=== PATIENT | female | born 1960 | race Caucasian/White ===

== ENCOUNTER 2016-07-11 09:47 | Emergency (ER) | payer MEDICARE, MEDICAID ==
[~2016-07-11] VITALS: Ht 142.2 cm; Wt 52.2 kg
[~2016-07-11 09:47] MED LIST: DEPAKOTE ER500 MG ORAL; DEPAKOTE250 MG PO; DEPAKOTE500 MG PO; LAMICTAL25 MG ORAL; METOPROLOL TART50 MG ORAL; ZYPREXA2.5 MG ORAL
[2016-07-11 10:39] LABS: BASOPHILS % (AUTO) 0.9 % (0.0-2.0); EOSINOPHILS % (AUTO) 0.9 % (0.0-3.0); LYMPHOCYTES % (AUTO) 24.7 % (20.0-45.0); MEAN CORPUSCULAR HEMOGLOBIN 32.1 PG (27.0-31.0); MEAN CORPUSCULAR HGB CONC 33.6 G/DL (32.0-36.0); MEAN CORPUSCULAR VOLUME 96 FL (80-99); MEAN PLATELET VOLUME 7.6 FL (6.5-10.1); NEUTROPHILS % (AUTO) 62.6 % (45.0-75.0); PLATELET COUNT 137 K/UL (150-450); RED BLOOD COUNT 3.77 M/UL (4.20-5.40); WHITE BLOOD COUNT 7.3 K/UL (4.8-10.8)
[2016-07-11 10:50] LABS: ALANINE AMINOTRANSFERASE 10 U/L (3-33); ALBUMIN/GLOBULIN RATIO 1.3 (1.0-2.7); ANION GAP 11 (5-15); ASPARTATE AMINO TRANSFERASE 22 U/L (5-40); CALCIUM 9.5 mg/dL (8.6-10.2); CARBON DIOXIDE 27 mEQ/L (20-30); CHLORIDE 102 mEQ/L (98-107); CREATININE 0.8 mg/dL (0.5-0.9); GLOMERULAR FILTRATION RATE > 60 mL/min (>60); HEMOLYSIS 21; POTASSIUM 5.5 mEQ/L (3.4-4.9); SODIUM 140 mEQ/L (135-145); TOTAL PROTEIN 7.2 g/dL (6.6-8.7)
[2016-07-11] MEDS ORDERED: Albuterol ud Inhalation HHN ONE (11:15)
--- NOTE | 2016-07-11 11:16 | Emergency Room Report ---
History of Present Illness General Chief Complaint: Upper Extremity Injury Source: Patient, Caregiver Present Illness HPI 55 YO F with known developmental disability since brought in by caregiver with 1-2 days of fluctuating and intermittently resolving right hand swelling. No associated redness. Swelling does not extend past wrist. No fever/chills. History of DM. No trauma known. No new medications. Patient is aphasic d/t disability, not speaking. Allergies: Coded Allergies: ERYTHROMYCIN BASE (Verified Allergy, Mild, Rash, 12/19/13) Patient History Limited by: medical condition Past Surgical History: none Pertinent Family History: none Social History: Denies: alcohol use, drug use, smoking Last Menstrual Period: na Now: No Immunizations: UTD Reviewed Nursing Documentation: PMH: Agreed, PSxH: Agreed Nursing Documentation-PMH Past Medical History: No History, Except For Hx Seizures: Yes Review of Systems All Other Systems: limited - patient aphasic at baseline Physical Exam Vital Signs Date Time Temp Pulse Resp B/P Pulse Ox O2 Delivery O2 Flow Rate FiO2 07/11/16 09:56 97.9 78 18 148/64 98 Room Air Sp02 EP Interpretation: reviewed, normal General Appearance: normal inspection, well appearing, no apparent distress, alert, other - patient only grunting, grimacing, making intermittent sounds Head: normocephalic, atraumatic ENT: normal ENT inspection, hearing grossly normal, normal voice Neck: normal inspection, full range of motion, supple, no bony tend Respiratory: normal inspection, lungs clear, normal breath sounds, no respiratory distress, no retraction, no wheezing Cardiovascular #1: regular rate, rhythm, no edema Gastrointestinal: normal inspection, normal bowel sounds, non tender, soft, no guarding, no hernia Genitourinary: no CVA tenderness Musculoskeletal: other - Right hand: non-pitting edema, mild swelling of hand. No obvious trauma/deformity. No erythema. Non-tender to palpation. No wheel /flare. No other abnormality of hand/upper right extremity Neurologic: normal inspection, alert, responsive, speech normal Psychiatric: normal inspection, judgement/insight normal, mood/affect normal Skin: normal inspection, normal color, no rash Lymphatic: normal inspection Medical Decision Making Diagnostic Impression: Primary Impression: Swelling of right hand ER Course 55 YO F with right hand swelling. VSS. Afebrile. DDx includes trauma/fx, infection, upper extremity DVT Unlikely infection given intermittent resolution Unreliable HPI given patient is developmentally delayed so will do xray to r/o occult fx Will do labs, Upper extremity doppler, d-dimer Other X-Ray Diagnostic Results Other X-Ray Diagnostic Results : X-Ray Ordered: Right hand EP Interpretation: Yes Findings: no fractures, no dislocation, no soft tissue swelling Number of Views: 3 Reevaluation Time: 12:14 Last Vital Signs Date Time Temp Pulse Resp B/P Pulse Ox O2 Delivery O2 Flow Rate FiO2 07/11/16 09:56 97.9 78 18 148/64 98 Room Air Status: improved Reevaluation Impression Labs: No leuks. H&H stable. D-dimer WNL. Mild HyperK ECG: No ECG changes or TW elevation Sono upper extremity negative for DVT Xray hand negative for acute injury Caregiver endorses swelling is continuing to decrease I do not see any emergency cause of patient's intermittent right hand swelling, or need for additional testing and/or hospitalization Caregiver states patient with followup with Dr Deondre PENA home Disposition: HOME, SELF-CARE Referrals: ALIYA HUDSON M.D. (PCP) MIGUEL ANGEL LAWRENCE M.D. Jul 11, 2016 11:16
[2016-07-11 12:11] VITALS: BP 124/82
[2016-07-11 12:31] VITALS: BP 120/70
--- NOTE | 2016-07-11 13:30 | Diagnostic Imaging Report ---
Indication: pain Findings: 3 views of the right hand were obtained. Normal bony mineralization and alignment are demonstrated. No acute fractures, erosions, or periosteal reaction are seen. Soft tissues are unremarkable. Impression: Negative examination of the right hand.
--- NOTE | 2016-07-14 12:49 | Cardiology Report ---
APPROVED REPORT EKG Measurement Heart [id number] MA 110P31 [id number] Sinus rhythm with short MA Cannot rule out Anterior infarct, age undetermined Abnormal ECG
--- NOTE | 2016-07-15 14:20 | Diagnostic Imaging Report ---
APPROVED REPORT CPT Code: 93524 Present Symptoms Comments: Right arm swelling RIGHT UPPER EXTREMITY: Venous imaging reveals patency of the internal jugular, subclavian, axillary and brachial veins. The basilic veins is also patent. Doppler indicates normal spontaneous flow within these venous segments. The cephalic vein was not well visualized. There is no evidence of acute deep vein thrombosis.
== END 2016-07-11 12:31 | disposition home or self-care (01) ==
LOC: EMR 10:31
DX: M79.89 Other specified soft tissue disorders (principal); F80.2 Mixed receptive-expressive language disorder; Z88.1 Allergy status to other antibiotic agents; E11.9 Type 2 diabetes mellitus without complications
CPT/HCPCS: 36415; 80053; 85025; 85379; 93005; 93971; 94640; 94664; 99283

== ENCOUNTER 2017-04-15 09:07 | Outpatient (CLI) | payer MEDICARE, MEDICAID ==
[2017-04-15 10:24] LABS: BASOPHILS % (AUTO) 1.1 % (0.0-2.0); EOSINOPHILS % (AUTO) 3.4 % (0.0-3.0); LYMPHOCYTES % (AUTO) 34.3 % (20.0-45.0); MEAN CORPUSCULAR HEMOGLOBIN 33.2 PG (27.0-31.0); MEAN CORPUSCULAR VOLUME 98 FL (80-99); MEAN PLATELET VOLUME 4.9 FL (6.5-10.1); MONOCYTES % (AUTO) 12.6 % (1.0-10.0); NEUTROPHILS % (AUTO) 48.6 % (45.0-75.0); PLATELET COUNT 172 K/UL (150-450); RED BLOOD COUNT 3.98 M/UL (4.20-5.40); RED CELL DISTRIBUTION WIDTH 12.1 % (11.6-14.8); WHITE BLOOD COUNT 7.1 K/UL (4.8-10.8)
[2017-04-15 11:34] LABS: ALANINE AMINOTRANSFERASE 16 U/L (12-78); ALBUMIN/GLOBULIN RATIO 0.7 (1.0-2.7); ANION GAP 6 mmol/L (5-15); ASPARTATE AMINO TRANSFERASE 22 U/L (15-37); CALCIUM 9.8 MG/DL (8.5-10.1); CARBON DIOXIDE 28 MMOL/L (21-32); CHLORIDE 106 MMOL/L (98-107); CREATININE 0.7 MG/DL (0.55-1.30); FREE T3 2.4 pg/mL (2.3-4.2); GLOMERULAR FILTRATION RATE > 60 mL/min (>60); POTASSIUM 4.7 MMOL/L (3.5-5.1); SODIUM 140 MMOL/L (136-145); THYROID STIMULATING HORMONE 1.973 uiU/mL (0.360-3.740); TOTAL PROTEIN 7.8 G/DL (6.4-8.2)
[2017-04-17 10:06] LABS: T3 TOTAL 110 ng/dL (71-180)
[2017-04-20 13:00] LABS: VITAMIN D 25-OH TOTAL 23 ng/mL (.)
== END 2017-04-15 11:07 | disposition home or self-care (01) ==
LOC: LAB 09:07
DX: G40.909 Epilepsy, unspecified, not intractable, without status epilepticus (principal)
CPT/HCPCS: 36415; 80053; 80164; 80175; 82306; 82607; 84439; 84443; 84481; 85025

== ENCOUNTER 2017-09-22 14:39 | Outpatient (CLI) | payer MEDICARE, MEDICAID ==
[2017-09-22 15:16] LABS: BASOPHILS % (AUTO) 0.9 % (0.0-2.0); EOSINOPHILS % (AUTO) 1.1 % (0.0-3.0); HEMATOCRIT 35.9 % (37.0-47.0); HEMOGLOBIN 12.6 G/DL (12.0-16.0); MEAN CORPUSCULAR VOLUME 95 FL (80-99); MONOCYTES % (AUTO) 10.1 % (1.0-10.0); NEUTROPHILS % (AUTO) 33.9 % (45.0-75.0); PLATELET COUNT 163 K/UL (150-450); RED BLOOD COUNT 3.76 M/UL (4.20-5.40); RED CELL DISTRIBUTION WIDTH 12.2 % (11.6-14.8); WHITE BLOOD COUNT 6.1 K/UL (4.8-10.8)
[2017-09-22 15:36] LABS: ALANINE AMINOTRANSFERASE 18 U/L (12-78); ALBUMIN 3.3 G/DL (3.4-5.0); ALBUMIN/GLOBULIN RATIO 0.8 (1.0-2.7); ALKALINE PHOSPHATASE 55 U/L (46-116); ANION GAP 8 mmol/L (5-15); ASPARTATE AMINO TRANSFERASE 20 U/L (15-37); BILIRUBIN,TOTAL 0.5 MG/DL (0.2-1.0); BLOOD UREA NITROGEN 9 mg/dL (7-18); CALCIUM 8.9 MG/DL (8.5-10.1); CARBON DIOXIDE 26 MMOL/L (21-32); CHLORIDE 107 MMOL/L (98-107); CREATININE 0.7 MG/DL (0.55-1.30); POTASSIUM 4.4 MMOL/L (3.5-5.1); SODIUM 141 MMOL/L (136-145)
== END 2017-09-22 16:39 | disposition home or self-care (01) ==
LOC: LAB 14:39
DX: G40.909 Epilepsy, unspecified, not intractable, without status epilepticus (principal)
CPT/HCPCS: 36415; 80053; 80164; 85025

== ENCOUNTER 2018-03-18 07:05 | Outpatient (CLI) | payer MEDICARE, MEDICAID ==
[2018-03-18 07:44] LABS: BASOPHILS % (AUTO) 0.8 % (0.0-2.0); EOSINOPHILS % (AUTO) 4.7 % (0.0-3.0); HEMATOCRIT 38.3 % (37.0-47.0); HEMOGLOBIN 12.5 G/DL (12.0-16.0); LYMPHOCYTES % (AUTO) 40.8 % (20.0-45.0); MEAN CORPUSCULAR VOLUME 95 FL (80-99); MONOCYTES % (AUTO) 10.8 % (1.0-10.0); NEUTROPHILS % (AUTO) 42.9 % (45.0-75.0); PLATELET COUNT 188 K/UL (150-450); RED BLOOD COUNT 4.02 M/UL (4.20-5.40); RED CELL DISTRIBUTION WIDTH 11.5 % (11.6-14.8); WHITE BLOOD COUNT 7.2 K/UL (4.8-10.8)
[2018-03-18 08:21] LABS: ALANINE AMINOTRANSFERASE 18 U/L (12-78); ALBUMIN 3.6 G/DL (3.4-5.0); ALBUMIN/GLOBULIN RATIO 0.8 (1.0-2.7); ALKALINE PHOSPHATASE 68 U/L (46-116); ANION GAP 8 mmol/L (5-15); ASPARTATE AMINO TRANSFERASE 14 U/L (15-37); BILIRUBIN,TOTAL 0.3 MG/DL (0.2-1.0); BLOOD UREA NITROGEN 11 mg/dL (7-18); CALCIUM 9.3 MG/DL (8.5-10.1); CARBON DIOXIDE 28 MMOL/L (21-32); CHLORIDE 106 MMOL/L (98-107); CREATININE 0.8 MG/DL (0.55-1.30); POTASSIUM 4.4 MMOL/L (3.5-5.1); SODIUM 142 MMOL/L (136-145)
== END 2018-03-18 09:05 | disposition home or self-care (01) ==
LOC: LAB 07:05
DX: R56.9 Unspecified convulsions (principal)
CPT/HCPCS: 36415; 80053; 80164; 80175; 82306; 82607; 84443; 85025

== ENCOUNTER 2018-08-25 06:23 | Outpatient (CLI) | payer MEDICARE, MEDICAID ==
[2018-08-25 08:00] LABS: BASOPHILS % (AUTO) 0.9 % (0.0-2.0); EOSINOPHILS % (AUTO) 2.4 % (0.0-3.0); HEMATOCRIT 35.7 % (37.0-47.0); HEMOGLOBIN 11.8 G/DL (12.0-16.0); LYMPHOCYTES % (AUTO) 27.2 % (20.0-45.0); MEAN CORPUSCULAR VOLUME 97 FL (80-99); MONOCYTES % (AUTO) 8.8 % (1.0-10.0); NEUTROPHILS % (AUTO) 60.6 % (45.0-75.0); PLATELET COUNT 169 K/UL (150-450); RED BLOOD COUNT 3.68 M/UL (4.20-5.40); RED CELL DISTRIBUTION WIDTH 11.7 % (11.6-14.8); WHITE BLOOD COUNT 10.3 K/UL (4.8-10.8)
[2018-08-25 08:17] LABS: ALANINE AMINOTRANSFERASE 12 U/L (12-78); ALBUMIN 3.4 G/DL (3.4-5.0); ALBUMIN/GLOBULIN RATIO 0.8 (1.0-2.7); ALKALINE PHOSPHATASE 78 U/L (46-116); ANION GAP 9 mmol/L (5-15); ASPARTATE AMINO TRANSFERASE 16 U/L (15-37); BILIRUBIN,TOTAL 0.3 MG/DL (0.2-1.0); BLOOD UREA NITROGEN 10 mg/dL (7-18); CALCIUM 9.4 MG/DL (8.5-10.1); CARBON DIOXIDE 28 MMOL/L (21-32); CHLORIDE 108 MMOL/L (98-107); CREATININE 0.9 MG/DL (0.55-1.30); SODIUM 145 MMOL/L (136-145)
== END 2018-08-25 08:23 | disposition home or self-care (01) ==
LOC: LAB 06:23
DX: G40.219 Localization-related (focal) (partial) symptomatic epilepsy and epileptic syndromes with complex partial seizures, intractable, without status epilepticus (principal)
CPT/HCPCS: 36415; 80053; 80164; 80175; 85025

== ENCOUNTER 2018-08-30 11:02 | Inpatient (IN) | payer MEDICARE, MEDICAID ==
[~2018-08-30] VITALS: Ht 157.5 cm; Wt 49.0 kg
--- NOTE | 2018-08-30 17:00 | NUR ---
NURSE NOTES: Patient arrived on unit via wheelchair. Patient is stable and transferred to bed without incident. assisted by Bruce from [facility]. Patient is nonverbal, patient is able to communicate by using facial expressions. Patient does not show facial grimacing or moaning. Patient was encouraged to use call light for assistance. All safety measures provided. Patient is in bed with call light within reach and seizure precautions provided. Will continue to monitor.
[2018-08-30] MEDS ORDERED: LORazepam Inj 2mg/ml 1ml IV PRN (17:30)
--- NOTE | 2018-08-30 18:00 | NUR ---
NURSE NOTES: Patient would not take medication as ordered. Dr. Swain aware. IV access established as ordered. Patient refused EKG. Left message for xray, awaiting response. Patient is in bed and appears frightened. All safety measures provided. Will continue to monitor.
[2018-08-30] MEDS: Depakote 500mg tab ORAL SCH (18:07)
[2018-08-30] MEDS: Metoprolol Tartrate 50mg tab ORAL SCH ×2 (18:07→23:00)
[2018-08-30] MEDS: OLANZapine 10mg tab ORAL SCH (18:08)
[2018-08-30] MEDS: D5 1/2NS w/KCL 10meq 1,000 ML IV SCH (19:29)
[2018-08-30 20:00] VITALS: BP 122/86
[2018-08-30] MEDS ORDERED: Haloperidol 5mg/ml Inj IM SCH (20:00)
[2018-08-30 20:26] LABS: BASOPHILS % (AUTO) 2.1 % (0.0-2.0); EOSINOPHILS % (AUTO) 0.9 % (0.0-3.0); HEMATOCRIT 33.5 % (37.0-47.0); HEMOGLOBIN 11.3 G/DL (12.0-16.0); LYMPHOCYTES % (AUTO) 22.2 % (20.0-45.0); MEAN CORPUSCULAR VOLUME 94 FL (80-99); MONOCYTES % (AUTO) 14.2 % (1.0-10.0); NEUTROPHILS % (AUTO) 60.6 % (45.0-75.0); PLATELET COUNT 129 K/UL (150-450); RED BLOOD COUNT 3.56 M/UL (4.20-5.40); RED CELL DISTRIBUTION WIDTH 11.9 % (11.6-14.8); WHITE BLOOD COUNT 7.3 K/UL (4.8-10.8)
--- NOTE | 2018-08-30 20:33 | NUR ---
NURSE NOTES: Received report from Anastasiia Rn. Patient in bed, awake, nonverbal, anxious. Refusing skin assessment.Temp 97.3. HR 127, BP 122/86 HR 20, refusing oxygen reading. Will reassess vital when patient is more relaxed. No respiriatory distress, no N/V. Labs drawn. Reoriented to room. Will continue to monitor. Bed low, call light within reach.
[2018-08-30 20:56] LABS: ALANINE AMINOTRANSFERASE 16 U/L (12-78); ALBUMIN 3.4 G/DL (3.4-5.0); ALBUMIN/GLOBULIN RATIO 0.8 (1.0-2.7); ALKALINE PHOSPHATASE 91 U/L (46-116); ANION GAP 10 mmol/L (5-15); ASPARTATE AMINO TRANSFERASE 20 U/L (15-37); BILIRUBIN,TOTAL 0.3 MG/DL (0.2-1.0); BLOOD UREA NITROGEN 17 mg/dL (7-18); CALCIUM 9.5 MG/DL (8.5-10.1); CARBON DIOXIDE 28 MMOL/L (21-32); CHLORIDE 105 MMOL/L (98-107); CREATININE 0.9 MG/DL (0.55-1.30); POTASSIUM 4.8 MMOL/L (3.5-5.1); SODIUM 143 MMOL/L (136-145)
[2018-08-30] MEDS: Heparin 5000 units/ml inj SUBQ SCH (21:00)
[2018-08-31] VITALS (7 sets, daily range): BP systolic 134–170; BP diastolic 50–95
[2018-08-31] MEDS: Depakote 500mg tab ORAL SCH ×5 (00:03→22:23)
--- NOTE | 2018-08-31 00:28 | NUR ---
NURSE NOTES: Patient's skin assessed. Skin intact. Patient is refusing anything oral, including medications. Also refusing Depakote. Valproic acid level 22. VSS. Left message with Dr. Swain. Awaiting response.
[2018-08-31] MEDS ORDERED: Haloperidol 5mg/ml Inj IM SCH (01:15)
[2018-08-31] MEDS ORDERED: Vitamin B-12 500mcg tab ORAL SCH (02:15)
--- NOTE | 2018-08-31 04:00 | Consultation ---
DATE OF CONSULTATION: 08/30/2018 CARDIOLOGY CONSULTATION CONSULTING PHYSICIAN: Sea Busch M.D. REQUESTING PHYSICIAN: Uriah Swain M.D. REASON FOR CONSULTATION: Tachycardia. HISTORY OF PRESENT ILLNESS: This is a developmentally disabled female, age 57, was seen by Dr. Swain and noted to have recurring vomiting and a rapid heart rate. She has not been able to eat for a day or 2. She has been weak and withdrawn. She takes psychiatric regimen of multiple drugs and has not been able to tolerate some of her medications during this period of vomiting. PAST MEDICAL HISTORY: 1. Schizophrenia. 2. Vitamin D deficiency. 3. B12 deficiency. MEDICATIONS: Reviewed and reconciled. ALLERGIES: Erythromycin. SOCIAL HISTORY: Negative for smoking, alcohol, or substance abuse. She lives in an assisted living facility. FAMILY HISTORY: Unknown. REVIEW OF SYSTEMS: Not obtainable from the patient. PHYSICAL EXAMINATION: GENERAL: Thin, frail, withdrawn, and in mild distress. VITAL SIGNS: Blood pressure 158/97, pulse 116, and respirations 18. Afebrile. BREASTS: No breast masses. Cachectic chest wall. NECK: Supple. Oropharynx clear. LUNGS: Clear. CARDIAC: Regular rhythm. Rapid rate. Normal S1, S2. No murmur. ABDOMEN: Soft and flat. No focal tenderness, guarding, or rebound. EXTREMITIES: No edema. LABORATORY DATA: White count 7.3 and hemoglobin 11.3. Troponin negative. Pro-natriuretic peptide 167. TSH 8.3. BUN 17 and creatinine 0.9. Potassium 4.8. Normal amylase 129. IMPRESSION: 1. Nausea and vomiting, etiology unclear. 2. Sinus tachycardia. 3. Elevated natriuretic peptide of no clinical significance. 4. Hypothyroidism. 5. Mild hypovolemia and dehydration. 6. Macrocytic anemia. 7. History of vitamin D deficiency. 8. History of vitamin B12 deficiency. 9. 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 PLAN: 1. Hydration. 2. Abdominal ultrasound. 3. Thyroid replacement. 4. Intravenous fluid hydration. 5. No additional cardiovascular studies presently indicated. Sea Busch M.D. DR: SAMIA JOB#: [id number] CC:
--- NOTE | 2018-08-31 07:33 | NUR ---
NURSE NOTES: WALKING ROUNDS DONE WITH OUTGOING RN. PATIENT AWAKE IN BED; NON-VERBAL WILL PROVIDE EYE CONTACT. AO X1. SIDERAILS PADDED. BED IN LOW AND LOCKED POSITION. CALL LIGHT WITHIN REACH. DISCUSSES WITH PATIENT PLAN OF CARE FOR THE DAY.UNABLE TO COMPREHEND.
--- NOTE | 2018-08-31 08:37 | NUR ---
HAND-OFF: Report given to DEMI PRITCHETT. PATIENT STABLE.
--- NOTE | 2018-08-31 08:58 | NUR ---
RADIOLOGY DEPT., ABDOMEN X-RAY DONE.-P.DYE
[2018-08-31] MEDS: Vitamin D 1000 IU Tab ORAL SCH (09:00)
[2018-08-31] MEDS: OLANZapine 10mg tab ORAL SCH ×2 (09:00→18:00)
--- NOTE | 2018-08-31 09:50 | NUR ---
NURSE NOTES: ATTEMPTED TO FEED AND GIVE AM MEDS BUT PATIENT REFUSED TO OPEN HER MOUTH AND SLAP THE FOOD AWAY. CURRENTLY RECEIVING IVFS. WILL RE-ATTEMPT MED ADMINISTRATION.
--- NOTE | 2018-08-31 10:06 | NUR ---
CASE MANAGEMENT:REVIEW DIRECT ADMIT FROM [facility] SI: NAUSEA AND VOMITING. TACHYCARDIA 97.3 125 20 122/86 98% ON RA GLUCOSE+161 is: IVF@75/HR SYNTHROID PO QD HEPARIN SQ Q12 LAMICTAL PO BID LOPRESSOR PO Q12 ZYPREXA PO BID DEPAKOTE PO Q12 : DIRECTLY ADMITTED TO MED/SURG INTERQUAL CRITERIA MET
[2018-08-31] MEDS: Metoprolol Tartrate 50mg tab ORAL SCH ×2 (10:37→21:25)
[2018-08-31] MEDS: D5 1/2NS w/KCL 10meq 1,000 ML IV SCH ×2 (10:37→21:31)
--- NOTE | 2018-08-31 10:55 | NUR ---
CHARGE NURSE NOTE: Valproic acid 22. notified.
[2018-08-31] MEDS: Heparin 5000 units/ml inj SUBQ SCH ×2 (12:03→21:27)
--- NOTE | 2018-08-31 12:48 | Diagnostic Imaging Report ---
Indication: Abdominal pain Comparison: None Single view of the abdomen obtained Findings: Bowel gas pattern is nonspecific. No mass, ectopic calcifications, or abnormal gas collections are identified. The bones are unremarkable. Impression: No acute findings
--- NOTE | 2018-08-31 15:34 | Cardiology Report ---
APPROVED REPORT EKG Measurement Heart [id number] VA 142P54 [id number] Sinus tachycardia Otherwise normal ECG
--- NOTE | 2018-08-31 16:30 | History and Physical Report ---
DATE OF ADMISSION: 08/30/2018 CHIEF COMPLAINT: Intractable nausea and vomiting, and dehydration. HISTORY OF PRESENT ILLNESS: The patient is a 57-year-old female. She has a history of intellectual developmental delay, seizure disorder, hypothyroidism, and hypertension, who presented with complaints of intractable nausea and vomiting. The patient was seen on the day of admission. While in the office, she had multiple episodes of emesis. According to the patient's charge operator, she has had emesis multiple times for the last several days. There were no reports of any constipation. No ill contacts. No fevers or chills. In light of the patient's persistent nausea and vomiting, she is now admitted for further evaluation and care. The patient is unable to provide any history. PAST MEDICAL HISTORY: As above. PAST SURGICAL HISTORY: None. CURRENT MEDICATIONS: Reconciled and reviewed. ALLERGIES: Includes erythromycin. FAMILY HISTORY: Noncontributory. SOCIAL HISTORY: There is no known history of tobacco, ethanol, or drugs. REVIEW OF SYSTEMS: Unobtainable as the patient is confused. PHYSICAL EXAMINATION: VITAL SIGNS: Temperature 97.3, pulse 125, respirations 20, and blood pressure 122/86. GENERAL: The patient is a well-developed, but chronically ill-appearing female. She is somewhat pale and does not follow commands. NECK: Supple. HEART: Tachycardic. LUNGS: Clear. ABDOMEN: Soft, nontender, and nondistended with normoactive bowel sounds. EXTREMITIES: Without clubbing, cyanosis, or edema. LABORATORY DATA: Sodium 143, potassium 4.8. A1c 6.1. LFTs were unremarkable. Troponin is 0.001. Natriuretic peptide level was 167. TSH was 8.3. White count 7, hemoglobin 11. Valproic acid level is 22. ASSESSMENT: This is a 57-year-old female with a history of intellectual developmental delay, hypertension, and hypothyroidism, admitted with complaints of intractable nausea and vomiting. Unclear etiology, suspect gastroenteritis, but need to rule out obstruction. PLAN: 1. Followup KUB. 2. Cardiology consultation regarding the patient's tachycardia. 3. We will have to titrate the patient's thyroid replacement therapy. Otherwise, continue the patient's psychiatric medications and seizure medications. Uriah Swain M.D. DR: RAMYA JOB#: [id number] CC:
--- NOTE | 2018-08-31 18:23 | NUR ---
NURSE NOTE ATTEMPTED TO GIVE PM MEDS. PATIENT FIGHTING AND UNABLE TO GIVE. MD NOTIFIED.
--- NOTE | 2018-08-31 18:30 | NUR ---
NURSE NOTES:ADDENDUM MD INFORMED OF UNSUCCESSFUL STRAIGHT CATH ATTEMPTED FOR 15 MINS. PATIENT UNABLE TO TOLERATE AND WAS NOT COOPERATIVE.
--- NOTE | 2018-08-31 19:24 | NUR ---
HAND-OFF: Report given to JAMESON Newby RN.
--- NOTE | 2018-08-31 19:25 | NUR ---
NURSE NOTES: Report taken from DEMI Trammell. Patient awake, A&Ox1, responds to name. Patient is non-verbal. MD aware that Plt count is at 129, continue to administer Heparin. IV site c/d/i and patent, site wrapped so patient does not pull IV. Order for straight cath in, Valeri attempted and could not place, I will try during shift to collect UA. Bed in lowest position, call light within reach.
[2018-08-31] MEDS ORDERED: Depakote 125mg Sprinkles ORAL SCH (21:00)
--- NOTE | 2018-08-31 21:00 | NUR ---
NURSE NOTES: Attempted to administer depakote, but patient was very agitated. She continually spit out the medication. Called MD for different formulation of medication, awaiting return phone call.
--- NOTE | 2018-09-01 00:45 | Progress Note ---
DATE: 08/31/2018 CARDIOLOGY PROGRESS NOTE SUBJECTIVE: The patient has less vomiting. She is tolerating a diet. She has been started on thyroid replacement. OBJECTIVE: VITAL SIGNS: Blood pressure 136/93, pulse 102, respirations 19. GENERAL: Thin and frail. LUNGS: Bilateral breath sounds. ABDOMEN: Soft. No focal tenderness. CARDIAC: Regular rhythm. Rapid rate. Normal S1, S2. EXTREMITIES: No edema. LABORATORY DATA: Reviewed. IMPRESSION: 1. Nausea and vomiting. 2. Hypothyroidism. 3. History of B12 and vitamin D deficiencies. 4. Developmental delay. 5. No clinical signs of acute congestive heart failure. 6. Secondary sinus tachycardia. PLAN: 1. Adequate hydration. 2. Fluid replacement. 3. Antiemetics. 4. Thyroid replacement. 5. DVT prophylaxis. 6. No role for diuretics or anti-failure regimen presently. Sea Busch M.D. DR: RITIKA JOB#: [id number] CC:
[2018-09-01 00:48] VITALS: BP 152/63
[2018-09-01 04:00] VITALS: BP 119/88
--- NOTE | 2018-09-01 05:44 | NUR ---
NURSE NOTES: Attempted to straight cath patient for UA collection unsuccessful. Will endorse to next shift.
[2018-09-01] MEDS: Levothyroxine 125mcg tab ORAL SCH (06:33)
--- NOTE | 2018-09-01 06:37 | NUR ---
NURSE NOTES: Only able to administer half the dose of levothyroxine. Patient was agitated and continued to spit out the rest of the medication.
--- NOTE | 2018-09-01 07:19 | NUR ---
HAND-OFF: Report given to DEMI Sung. Patient awake, VS stable.
--- NOTE | 2018-09-01 07:29 | NUR ---
NURSE NOTES: Report received from DEMI [place]. Pt in bed, awake, A/O x1, jerking movements, bed in lowest position, call light within reach.
[2018-09-01 08:00] VITALS: BP 152/87
--- NOTE | 2018-09-01 08:05 | General Progress Note ---
Assessment/Plan Problem List: (1) Vomiting ICD Codes: R11.10 - Vomiting, unspecified SNOMED: 657995928 (2) Seizure disorder ICD Codes: G40.909 - Epilepsy, unspecified, not intractable,without status epilepticus SNOMED: 991557918 (3) Dehydration ICD Codes: E86.0 - Dehydration SNOMED: 76505855 Status: stable Assessment/Plan cont current rx advance diet ivf antiemetics compliance stressed try to get UA dc planning tomorrow if no vomiting Subjective ROS Limited/Unobtainable: Yes Constitutional: Reports: malaise, weakness HEENT: Reports: no symptoms Cardiovascular: Reports: no symptoms Respiratory: Reports: no symptoms Gastrointestinal/Abdominal: Reports: vomiting Genitourinary: Reports: no symptoms Neurologic/Psychiatric: Reports: pre-existing deficit, seizure Endocrine: Reports: no symptoms Hematologic/Lymphatic: Reports: no symptoms Allergies: Coded Allergies: ERYTHROMYCIN BASE (Verified Allergy, Mild, Rash, 12/19/13) All Systems: reviewed and negative except above Subjective on clear. tolerating so far. KUB neg. small BM. uncooperative with care and meds at times. Objective Last 24 Hour Vital Signs Date Time Temp Pulse Resp B/P (MAP) Pulse Ox O2 Delivery O2 Flow Rate FiO2 09/01/18 04:00 98.0 80 16 119/88 (98) 95 09/01/18 00:48 97.6 73 18 152/63 (92) 96 08/31/18 21:25 96 170/80 08/31/18 21:00 Room Air 08/31/18 20:00 97.9 96 18 170/80 (110) 96 08/31/18 15:49 97.1 98 18 140/86 (104) 98 08/31/18 12:00 98.6 102 19 136/93 (107) 96 08/31/18 10:37 109 148/95 08/31/18 09:00 Room Air Intake and Output 08/31/18 09/01/18 18:59 06:59 Intake Total 787.5 ml 315 ml Balance 787.5 ml 315 ml Intake Oral 240 ml IV Total 787.5 ml 75 ml # Voids 3 2 # Bowel Movements 3 Height (Feet): 5 Height (Inches): 2.00 Weight (Pounds): 108 General Appearance: WD/WN, confused, agitated Neck: supple Cardiovascular: regular rhythm Respiratory/Chest: chest wall non-tender, lungs clear, normal breath sounds Abdomen: normal bowel sounds, non tender, soft Edema: no edema noted Arm (L), no edema noted Arm (R), no edema noted Leg (L), no edema noted Leg (R), no edema noted Pedal (L), no edema noted Pedal (R), no edema noted Generalized Uriah Swain MD Sep 01, 2018 08:05
[2018-09-01] MEDS: Vitamin D 1000 IU Tab ORAL SCH (09:20)
[2018-09-01] MEDS: OLANZapine 10mg tab ORAL SCH ×2 (09:20→17:25)
[2018-09-01] MEDS: Depakote 125mg Sprinkles ORAL SCH ×2 (09:20→22:09)
[2018-09-01] MEDS: Metoprolol Tartrate 50mg tab ORAL SCH ×2 (09:21→21:00)
[2018-09-01] MEDS: Heparin 5000 units/ml inj SUBQ SCH ×2 (09:22→22:08)
--- NOTE | 2018-09-01 09:54 | NUR ---
CASE MANAGEMENT:REVIEW 09/01/18 SI: VOMITING. DEHYDRATION 97.4 87 16 152/87 97% ON RA IS: DEPAKOTE PO Q12 SYNTHROID PO QAM HEPARIN SQ Q12 IVF@75/HR LOPRESSOR PO Q12 : MED/SURG STATUS DCP: FROM [facility] PLAN: BEGIN SOFT DIET POSSIBLE DC TOMORROW IF NO EMESIS
[2018-09-01] MEDS: D5 1/2NS w/KCL 10meq 1,000 ML IV SCH ×2 (10:48→23:47)
[2018-09-01 12:00] VITALS: BP 122/87
[2018-09-01 14:17] LABS: APPEARANCE,URINE CLEAR; BILIRUBIN, URINE NEGATIVE (NEGATIVE); COLOR,URINE PALE YELLOW; GLUCOSE, URINE (UA) NEGATIVE (NEGATIVE); KETONES,URINE NEGATIVE (NEGATIVE); LEUKOCYTE ESTERASE ,URINE 1+ (NEGATIVE); NITRITE,URINE NEGATIVE (NEGATIVE); PH,URINE 6 (4.5-8.0); PROTEIN,URINE NEGATIVE (NEGATIVE); UROBILINOGEN,URINE NORMAL MG/DL (0.0-1.0)
[2018-09-01 16:00] VITALS: BP 124/66
--- NOTE | 2018-09-01 19:30 | NUR ---
NURSE NOTES: Received report from DEMI Sung. Received pt asleep, easily arousable by tactile stimuli, awake, alert x 1, confused, restless in bed. IV R FA # 22 patent and intact. IV fluid infusing as ordered. Bed in lowest position, side rails x 3, call light within reach. Will continue to monitor.
--- NOTE | 2018-09-01 19:41 | NUR ---
HAND-OFF: Report given to DEMI Qiu.
[2018-09-01 20:00] VITALS: BP 101/53
[2018-09-02] VITALS: BP 110/61
[2018-09-02 04:00] VITALS: BP 113/55
--- NOTE | 2018-09-02 04:45 | Progress Note ---
DATE: 09/01/2018 CARDIOLOGY PROGRESS NOTE SUBJECTIVE: Vomiting has decreased. The patient is difficult and uncooperative with medications and care at times due to her psychiatric condition. OBJECTIVE: VITAL SIGNS: Blood pressure 119/88 to 170/80, heart rate 80 to 102, respiratory rate 16 to 18, and afebrile. NECK: Supple. LUNGS: Clear. ABDOMEN: Soft, nontender, and benign. KUB is negative. EXTREMITIES: Without edema. LABORATORY DATA: Urinalysis with no active sediment. IMPRESSION: 1. Nausea and vomiting. 2. Developmentally disabled. 3. Borderline diabetes mellitus. 4. No clinical signs of acute congestive heart failure. 5. Hypothyroidism. 6. B12 and vitamin D deficiency. 7. Elevated natriuretic peptide assay of no clinical significance. PLAN: 1. ADA diet. 2. No additional cardiovascular workup at this time. 3. Thyroid replacement. Sea Busch M.D. DR: SAMIA JOB#: [id number] CC:
[2018-09-02] MEDS: Levothyroxine 125mcg tab ORAL SCH (05:50)
--- NOTE | 2018-09-02 07:00 | NUR ---
HAND-OFF: Report given to DEMI Sung. Pt in stable condition .
--- NOTE | 2018-09-02 07:05 | NUR ---
NURSE NOTES: Report received from DEMI Qiu. Pt in bed, asleep, respirations unlabored, bed in lowest position, call light within reach.
[2018-09-02] MEDS ORDERED: LEVOTHYROXINE125 MCG ORAL (07:56)
[2018-09-02 08:00] VITALS: BP 125/71
[2018-09-02 08:46] VITALS: BP 125/71
[2018-09-02] MEDS: Vitamin D 1000 IU Tab ORAL SCH (08:46)
[2018-09-02] MEDS: Depakote 125mg Sprinkles ORAL SCH (08:46)
[2018-09-02] MEDS: Metoprolol Tartrate 50mg tab ORAL SCH (08:46)
[2018-09-02] MEDS: OLANZapine 10mg tab ORAL SCH (08:46)
[2018-09-02] MEDS: Heparin 5000 units/ml inj SUBQ SCH (08:47)
--- NOTE | 2018-09-02 11:57 | NUR ---
NURSE NOTES: Pt discharged back to [facility] with all belongings, via ambulance, IV and ID band removed, pt stable for discharge.
--- NOTE | 2018-09-03 04:36 | Discharge Summary ---
DATE OF ADMISSION: 08/30/2018 DATE OF DISCHARGE: 09/02/2018 ADMISSION DIAGNOSES: 1. Intractable nausea and vomiting, rule out bowel obstruction. 2. Dehydration. 3. Encephalopathy. 4. Seizure disorder. 5. Hypothyroidism. DISCHARGE DIAGNOSES: 1. Intractable nausea and vomiting, rule out bowel obstruction. 2. Dehydration. 3. Encephalopathy. 4. Seizure disorder. 5. Hypothyroidism. HOSPITAL COURSE: The patient was admitted with complaints of intractable nausea and vomiting. She had a KUB that showed no evidence of any obstruction. She had multiple episodes of vomiting. She received IV fluids and antiemetic. She did improve. On discharge, she was tolerating p.o.'s with no further episodes of vomiting. She was felt to likely have gastroenteritis. She was also noted to be hypothyroid and started on thyroid replacement therapy. She will be followed up in 6 weeks in the office. DISCHARGE MEDICATIONS: Please see discharge medication list for discharge medications. DIET: Regular diet. ACTIVITIES: Ad-ayde. Uriah Swain M.D. DR: JOSE JOB#: [id number] CC:
--- NOTE | 2018-09-05 03:30 | Progress Note ---
DATE: 09/02/2018 CARDIOLOGY PROGRESS NOTE Late entry for 09/02/2018. SUBJECTIVE: The patient has no more nausea and vomiting. Tolerating diet. Vitals are stable. Height rate has retained to baseline. OBJECTIVE: VITAL SIGNS: Blood pressure 113/55, pulse 60, and respirations 20. Afebrile. LUNGS: Clear. CARDIAC: Regular. Normal S1, S2. ABDOMEN: Soft. EXTREMITIES: No edema. IMPRESSION: 1. Nausea and vomiting with dehydration and hypovolemia, now resolved. 2. Secondary sinus tachycardia, recovered. 3. Elevated natriuretic peptide assay of no clinical significance. 4. Hypothyroidism, now on replacement therapy. 5. B12 and vitamin D deficiencies, on replacement. PLAN: No additional cardiovascular workup or therapy is presently indicated. Sea Busch M.D. DR: SAMIA JOB#: [id number] CC:
== END 2018-09-02 13:00 | disposition home or self-care (01) | DRG 389 ==
LOC: 3E 16:53
DX: K56.609 Unspecified intestinal obstruction, unspecified as to partial versus complete obstruction (principal); G93.40 Encephalopathy, unspecified; R62.50 Unspecified lack of expected normal physiological development in childhood; E03.9 Hypothyroidism, unspecified; R00.0 Tachycardia, unspecified; F20.9 Schizophrenia, unspecified; G24.01 Drug induced subacute dyskinesia; D53.9 Nutritional anemia, unspecified; E86.0 Dehydration; E55.9 Vitamin D deficiency, unspecified; G40.909 Epilepsy, unspecified, not intractable, without status epilepticus; I10 Essential (primary) hypertension; F81.9 Developmental disorder of scholastic skills, unspecified; T43.505A Adverse effect of unspecified antipsychotics and neuroleptics, initial encounter; Y92.9 Unspecified place or not applicable
CPT/HCPCS: 36415; 74018; 80053; 80164; 81003; 83036; 83690; 83880; 84443; 84484; 85025; 87086; 93005

== ENCOUNTER 2019-01-14 08:30 | Outpatient (CLI) | payer MEDICARE, MEDICAID ==
[~2019-01-14 08:30] MED LIST changes: +LEVOTHYROXINE125 MCG ORAL
[2019-01-14 08:55] LABS: BASOPHILS % (AUTO) 0.9 % (0.0-2.0); EOSINOPHILS % (AUTO) 1.4 % (0.0-3.0); HEMATOCRIT 38.9 % (37.0-47.0); HEMOGLOBIN 12.8 G/DL (12.0-16.0); LYMPHOCYTES % (AUTO) 30.6 % (20.0-45.0); MEAN CORPUSCULAR VOLUME 95 FL (80-99); MONOCYTES % (AUTO) 10.6 % (1.0-10.0); NEUTROPHILS % (AUTO) 56.6 % (45.0-75.0); PLATELET COUNT 232 K/UL (150-450); RED BLOOD COUNT 4.11 M/UL (4.20-5.40); RED CELL DISTRIBUTION WIDTH 12.1 % (11.6-14.8); WHITE BLOOD COUNT 7.5 K/UL (4.8-10.8)
[2019-01-14 09:31] LABS: ALANINE AMINOTRANSFERASE 12 U/L (12-78); ALBUMIN 3.5 G/DL (3.4-5.0); ALBUMIN/GLOBULIN RATIO 0.8 (1.0-2.7); ALKALINE PHOSPHATASE 72 U/L (46-116); ANION GAP 3 mmol/L (5-15); ASPARTATE AMINO TRANSFERASE 13 U/L (15-37); BILIRUBIN,TOTAL 0.4 MG/DL (0.2-1.0); BLOOD UREA NITROGEN 18 mg/dL (7-18); CALCIUM 10.1 MG/DL (8.5-10.1); CARBON DIOXIDE 31 MMOL/L (21-32); CHLORIDE 108 MMOL/L (98-107); CREATININE 0.9 MG/DL (0.55-1.30); POTASSIUM 5.7 MMOL/L (3.5-5.1); SODIUM 142 MMOL/L (136-145)
== END 2019-01-14 10:30 | disposition home or self-care (01) ==
LOC: LAB 08:30
DX: G40.909 Epilepsy, unspecified, not intractable, without status epilepticus (principal)
CPT/HCPCS: 36415; 80053; 80164; 80175; 85025

== ENCOUNTER 2019-03-15 11:49 | Emergency (ER) | payer MEDICAID, MEDICARE ==
[~2019-03-15] VITALS: Ht 152.4 cm; Wt 49.9 kg
[2019-03-15 12:00] VITALS: BP 150/82
--- NOTE | 2019-03-15 12:00 | NUR ---
ED Nurse Note: pt brought by caregiver due to coughing and runny nose for 2-3 days. no fever or chills reported. pt is non-verbal. has mental disablilty. skin warm to touch. respirtions even and non-labored noted. breath sounds clear. will wait for the further order.
--- NOTE | 2019-03-15 12:58 | Emergency Room Report ---
History of Present Illness General Chief Complaint: Upper Respiratory Illness Source: Medical Record Present Illness HPI 58-year-old female with history of schizophrenia and bipolar disorder brought in by caregiver due to 4 days of cough and congestion. Patient is nonverbal and combative. Patient does not allow for proper physical exam. According to caregiver patient usually is prescribed azithromycin and cough syrup. Patient is asking for Phenergan however I advised the caregiver that due to patient taking Zyprexa Phenergan is not advised and to be prescribed by psychiatrist if advised by him. Patient is in no apparent distress, has a stable vital signs. Patient is not a good historian and the caregiver does not appear to be a good historian either. Allergies: Coded Allergies: ERYTHROMYCIN BASE (Verified Allergy, Mild, Rash, 12/19/13) Patient History Past Medical History: see triage record Past Surgical History: unable to obtain Pertinent Family History: none Now: No Immunizations: UTD Reviewed Nursing Documentation: PMH: Agreed; PSxH: Agreed Nursing Documentation-PMH Past Medical History: No History, Except For Hx Cardiac Problems: No Hx Cancer: No Hx Gastrointestinal Problems: No Hx Neurological Problems: No Hx Seizures: Yes Review of Systems All Other Systems: negative except mentioned in HPI Physical Exam Vital Signs Date Time Temp Pulse Resp B/P (MAP) Pulse Ox O2 Delivery O2 Flow Rate FiO2 03/15/19 12:00 97.9 97 18 150/82 (104) 100 Room Air Sp02 EP Interpretation: reviewed, normal General Appearance: well appearing, no apparent distress, alert Head: normocephalic Eyes: bilateral eye normal inspection, bilateral eye PERRL ENT: normal pharynx Neck: full range of motion, supple/symm/no masses Respiratory: chest non-tender, lungs clear, normal breath sounds, speaking full sentences Cardiovascular #1: normal inspection, no murmur Gastrointestinal: normal inspection Neurologic: alert, oriented x3 Psychiatric: depressed affect Skin: no rash Lymphatic: normal inspection Medical Decision Making PA Attestation All diagnoses and treatment plans were reviewed and discussed with my supervising physician Dr. Rankin Diagnostic Impression: Primary Impression: URI (upper respiratory infection) ER Course 58-year-old female with history of schizophrenia and bipolar disorder brought in by caregiver due to 4 days of cough and congestion. Patient is nonverbal and combative. Patient does not allow for a proper physical exam. According to caregiver patient usually is prescribed azithromycin and cough syrup. Patient is asking for Phenergan however I advised the caregiver that due to patient taking Zyprexa Phenergan is not advised and to be prescribed by psychiatrist if advised by him. Patient is in no apparent distress, has a stable vital signs. Patient is not a good historian and the caregiver does not appear to be a good historian either. Ddx considered but are not limited to: strep pharyngitis, URI, tonsillitis, peritonsillar abscess, influneza Vital signs: are WNL, pt. is afebrile H&PE are most consistent with: URI presumed bacterial as patient is not a good historian ORDERS: Azithromycin, guaifenesin ED INTERVENTIONS: None required at this time. DISCHARGE: At this time pt. is stable for d/c to home. Will provide printed patient care instructions, and any necessary prescriptions. Care plan and follow up instructions have been discussed with the patient prior to discharge. Patient to check with her questions before start of new medication follow-up with her primary care provider if worsening symptoms return to the emergency room Last Vital Signs Date Time Temp Pulse Resp B/P (MAP) Pulse Ox O2 Delivery O2 Flow Rate FiO2 03/15/19 12:00 97.9 97 18 150/82 (104) 100 Room Air Disposition: HOME, SELF-CARE Condition: Stable Scripts Guaifenesin* (GUAIFENESIN) 100 Mg/5 Ml Liquid 5 ML ORAL Q4H, #120 ML 0 Refills Prov: Ashwini Foreman 03/15/19 Azithromycin* (AZITHROMYCIN*) 200 Mg/5 Ml Susp.recon 13 ML ORAL DAILY for 5 Days, #40 ML 13ml po x1d then 6.5ml po daily x4d Prov: Ashwini Foreman 03/15/19 Referrals: NOT CHOSEN [facility]/,REFERRING (PCP) Patient Instructions: Upper Respiratory Infection, Adult Additional Instructions: Take medication as directed, follow-up with your primary care provider and your psychiatrist for Phenergan at this time we cannot write for the medication as you are taking Zyprexa. If worsening symptoms return to the emergency room. Ashwini Foreman Mar 15, 2019 12:58
[2019-03-15] MEDS ORDERED: AZITHROMYC200 MG/5 M ORAL (13:01)
[2019-03-15] MEDS ORDERED: GUAIFENESI100 MG/5 M ORAL (13:01)
--- NOTE | 2019-03-15 13:08 | NUR ---
ER DISCHARGE NOTE: Patient is cleared to be discharged per ERMD with caregiver, on room air, with stable vital signs. pt was given dc and prescription instructions, caregiver was able to verbalize understanding, pt id band removed without complications. pt is able to ambulate with steady gait. pt took all belongings.
[2019-03-15 13:10] VITALS: BP 150/82
== END 2019-03-15 13:11 | disposition home or self-care (01) ==
LOC: EMR 12:38
DX: J06.9 Acute upper respiratory infection, unspecified (principal); Z88.1 Allergy status to other antibiotic agents; F20.9 Schizophrenia, unspecified; F31.9 Bipolar disorder, unspecified
CPT/HCPCS: 99282

== ENCOUNTER 2019-07-26 10:00 | Emergency (ER) | payer MEDICARE, MEDICAID ==
[~2019-07-26] VITALS: Ht 157.5 cm; Wt 54.4 kg
[~2019-07-26 10:00] MED LIST changes: +AZITHROMYC200 MG/5 M ORAL; +GUAIFENESI100 MG/5 M ORAL
[2019-07-26 10:21] VITALS: BP 155/90
--- NOTE | 2019-07-26 10:21 | NUR ---
ED Nurse Note: PT Brought in by her caregiver for S/P fall. Per caregiver, PT fell off from her bed. no visible injury noted, but caregiver wants to make sure everthing is ok. PT is non verbal. No S/Sx of pain via FLACC scale.
--- NOTE | 2019-07-26 11:05 | NUR ---
ED Nurse Note: X ray being done at [facility].
--- NOTE | 2019-07-26 11:07 | Emergency Room Report ---
History of Present Illness General Chief Complaint: Multiple Trauma/Fall Source: Caregiver Present Illness HPI Patient is developmentally delayed and is brought in by print room worker who reports that the patient was found on the ground Patient has history of seizure activity and has had multiple seizures in the past However the patient was not witnessed to have seizure activity today The print room worker was concerned regarding the patient's fall and being found on the ground Patient appears to have some discomfort to the right upper leg And presents for further evaluation History of present illness is limited as the patient Herself is not able to provide history Allergies: Coded Allergies: ERYTHROMYCIN BASE (Verified Allergy, Mild, Rash, 12/19/13) Patient History Past Medical History: see triage record Reviewed Nursing Documentation: PMH: Agreed; PSxH: Agreed Nursing Documentation-PMH Past Medical History: No History, Except For Hx Cardiac Problems: No Hx Hypertension: No Hx Pacemaker: No Hx Asthma: No Hx COPD: No Hx Diabetes: No Hx Cancer: No Hx Gastrointestinal Problems: No Hx Dialysis: No History Of Psychiatric Problem: No Hx Neurological Problems: Yes Hx Cerebrovascular Accident: No Hx Seizures: Yes Review of Systems All Other Systems: limited - Other than the ones mentioned in the history of present illness all others are reviewed however they do stay limited due to the patient's mental status Physical Exam Vital Signs Date Time Temp Pulse Resp B/P (MAP) Pulse Ox O2 Delivery O2 Flow Rate FiO2 07/26/19 10:20 97.9 105 16 159/89 (112) 99 Room Air Sp02 EP Interpretation: reviewed, normal General Appearance: no apparent distress Head: other - Microcephalic head Eyes: bilateral eye PERRL ENT: normal pharynx Neck: supple Respiratory: lungs clear, no respiratory distress Cardiovascular #1: regular rate, rhythm Gastrointestinal: non tender, soft Musculoskeletal: other - Patient has significant arthritic changes right shoulder specifically showing this significant kyphosis, there is no obvious grimacing with palpation of the extremities Neurologic: alert, other - Eyes are open however patient not responsive verbally Skin: no rash - No obvious contusions or hematomas Lymphatic: no adenopathy Medical Decision Making Diagnostic Impression: Primary Impression: Contusion ER Course Given the history and presentation multiple imaging are obtained The exam and the evaluation is also very limited given the patient's mental status and ability to provide any input regarding discomfort Multiple imaging does not show any evidence of acute process Given the exam and the evaluation however subtle and potentially larger acute findings can be missed The print room worker is encouraged to pay close attention over the next several days and return to the ER if there is any new complaints or other areas of signs of discomfort Chest X-Ray Diagnostic Results Chest X-Ray Diagnostic Results : Chest X-Ray Ordered: Yes # of Views/Limited/Complete: 1 View Indication: Chest Pain EP Interpretation: Yes Interpretation: no consolidation, no effusion, no pneumothorax, no acute cardiopulmonary disease Impression: No acute disease Electronically Signed by: Juan Gibbons DO Other X-Ray Diagnostic Results Other X-Ray Diagnostic Results #1: X-Ray ordered: Left tib-fib # of Views/Limited Vs Complete: 2 View Indication: Pain EP Interpretation: Yes Interpretation: no dislocation, no soft tissue swelling, no fractures Impression: No acute disease Electronically Signed by: Juan Gibbons DO Other X-Ray Diagnostic Results #2: X-Ray ordered: Right tib-fib # of Views/Limited Vs Complete: 2 View Indication: Pain EP Interpretation: Yes Interpretation: no dislocation, no soft tissue swelling, no fractures Impression: No acute disease Electronically Signed by: Juan Gibbons DO Other X-Ray Diagnostic Results #3: X-Ray ordered: Right femur # of Views/Limited Vs Complete: 3 View Indication: Pain EP Interpretation: Yes Interpretation: no dislocation, no soft tissue swelling, no fractures Impression: No acute disease Electronically Signed by: Juan Gibbons DO Other X-Ray Diagnostic Results #4: X-Ray ordered: Left femur # of Views/Limited Vs Complete: 3 View Indication: Pain EP Interpretation: Yes Interpretation: no dislocation, no soft tissue swelling, no fractures Impression: No acute disease Electronically Signed by: Juan Gibbons DO Other X-Ray Diagnostic Results #5: X-Ray ordered: Pelvic # of Views/Limited Vs Complete: 1 View Indication: Pain EP Interpretation: Yes Interpretation: no dislocation, no soft tissue swelling, no fractures Impression: No acute disease Electronically Signed by: Juan Gibbons DO Last Vital Signs Date Time Temp Pulse Resp B/P (MAP) Pulse Ox O2 Delivery O2 Flow Rate FiO2 07/26/19 10:21 98 18 Room Air 07/26/19 10:21 97.9 155/90 99 Status: improved Disposition: HOME, SELF-CARE Condition: Improved Referrals: Uriah Swain MD (PCP) Additional Instructions: Patient is provided with the discharge instructions notified to follow up with primary doctor in the next 2-3 days otherwise return to the er with any worsening symptoms. Please note that this report is being documented using [employer] technology. This can lead to erroneous entry secondary to incorrect interpretation by the dictating instrument. Juan Gibbons DO Jul 26, 2019 11:07
[2019-07-26 12:23] VITALS: BP 150/88
--- NOTE | 2019-07-26 12:23 | NUR ---
ER DISCHARGE NOTE: Patient is cleared to be discharged per ERMD, pt is aox4, on room air, with stable vital signs. pt was given dc and prescription instructions, pt was able to verbalize understanding, pt id band removed without complications. pt is able to ambulate with steady gait. pt took all belongings.
--- NOTE | 2019-07-26 13:09 | Diagnostic Imaging Report ---
Indication: Chest pain, status post fall Technique: One view of the chest Comparison: 03/10/2011 Findings: Lungs and pleural spaces are clear. Heart size is normal. No pneumothorax. No significant change Impression: No acute process
--- NOTE | 2019-07-26 13:20 | Diagnostic Imaging Report ---
Indication: Pain, status post fall Technique: 2 views of the left tibia and fibula Comparison: none Findings: No acute fractures. No dislocations. Joint spaces are preserved Impression: Negative
--- NOTE | 2019-07-26 13:22 | Diagnostic Imaging Report ---
Indication: Trauma, pain Technique: 2 views of the right tibia and fibula Comparison: 03/06/2011 Findings: Interim surgical repair of previously demonstrated distal tibial shaft fracture. Interim healing of previously demonstrated fibular fracture. There is markedly unusual appearance to the anterior proximal tibia, which is a new finding from the prior exam. This appears chronic, however. Impression: No acute bony trauma. Findings as noted
--- NOTE | 2019-07-26 13:23 | Diagnostic Imaging Report ---
Indications: Pain, trauma Technique: Two views of the left femur Comparison: None Findings: No acute fractures. No dislocations. The joint spaces are preserved Impression: Negative
--- NOTE | 2019-07-26 13:31 | Diagnostic Imaging Report ---
Indication: Pain, trauma Technique: 2 views of the right femur Comparison: none Findings: No acute fractures. No dislocations. The joint spaces are preserved. Unusual proliferative changes are seen at the anterior aspect of the knee joint, inferior to the patella and superior to the anterior tibial plateau. Surgical hardware is seen in the tibia Impression: No acute bony trauma
--- NOTE | 2019-07-26 13:32 | Diagnostic Imaging Report ---
Indication: Pain, trauma, status post fall Technique: One view of the pelvis Comparison: none Findings: No acute fractures. No dislocations. The joint spaces are preserved. Impression: Negative
== END 2019-07-26 12:23 | disposition home or self-care (01) ==
LOC: EMR 10:43
DX: G40.909 Epilepsy, unspecified, not intractable, without status epilepticus (principal)
CPT/HCPCS: 71045; 72170; 99284

== ENCOUNTER → 2020-04-03 | Outpatient (CLI) | payer MEDICARE, MEDICAID ==
[2020-04-03 10:15] LABS: BASOPHILS % (AUTO) 2.3 % (0.0-2.0); HEMATOCRIT 40.2 % (37.0-47.0); HEMOGLOBIN 13.1 G/DL (12.0-16.0); LYMPHOCYTES % (AUTO) 29.2 % (20.0-45.0); MEAN CORPUSCULAR VOLUME 95 FL (80-99); MONOCYTES % (AUTO) 12.4 % (1.0-10.0); NEUTROPHILS % (AUTO) 53.2 % (45.0-75.0); PLATELET COUNT 232 K/UL (150-450); RED BLOOD COUNT 4.25 M/UL (4.20-5.40); RED CELL DISTRIBUTION WIDTH 12.8 % (11.6-14.8); WHITE BLOOD COUNT 7.4 K/UL (4.8-10.8)
[2020-04-03 10:36] LABS: ALANINE AMINOTRANSFERASE 63 U/L (12-78); ALBUMIN 3.7 G/DL (3.4-5.0); ALBUMIN/GLOBULIN RATIO 0.8 (1.0-2.7); ALKALINE PHOSPHATASE 159 U/L (46-116); ANION GAP 9 mmol/L (5-15); ASPARTATE AMINO TRANSFERASE 52 U/L (15-37); BILIRUBIN,TOTAL 0.5 MG/DL (0.2-1.0); BLOOD UREA NITROGEN 14 mg/dL (7-18); CALCIUM 8.9 MG/DL (8.5-10.1); CARBON DIOXIDE 26 MMOL/L (21-32); CHLORIDE 103 MMOL/L (98-107); CREATININE 0.9 MG/DL (0.55-1.30); POTASSIUM 4.8 MMOL/L (3.5-5.1); SODIUM 138 MMOL/L (136-145)
== END | disposition home or self-care (01) ==
LOC: LAB 08:49
DX: G40.219 Localization-related (focal) (partial) symptomatic epilepsy and epileptic syndromes with complex partial seizures, intractable, without status epilepticus (principal)
CPT/HCPCS: 36415; 80053; 80164; 80175; 82306; 82607; 84443; 85025